=== PATIENT | female | born 1955 | race Hispanic/Latino ===

== ENCOUNTER 2016-08-01 14:31 | Emergency (ER) | payer BC ==
[2016-08-01 14:42] VITALS: BP 123/74; PULSE 79; RESP 16; TEMP 98.2; O2SAT 100
--- NOTE | 2016-08-01 15:36 | ED PDOC ---
Lower Extremity Pain/Injury Time Seen by Provider: 08/01/16 15:01 Chief Complaint (Nursing): Lower Extremity Problem/Injury History Per: Patient History/Exam Limitations: no limitations Onset/Duration Of Symptoms: Days Additional Complaint(s): 61-year-old female, PMHx includes Breast CA (completed chemotherapy), presents to the emergency department with complaints of swelling to RLE. Patient states 10 days ago, she notice swelling to her right leg. States symptoms resolved after 24hrs. Patient notes that she noticed the leg swelling again a few days ago, which is associated with "pins and needles" sensation and pain to calf. Patient was seen by clinic, who sent her to the ED for further evaluation and US to rule out DVT. Patient denies shortness of breath, chest pain, back pain, dizziness, nausea/vomiting, or any other associated symptoms. No other complaints at this time. Past Medical History Reviewed: Historical Data, Nursing Documentation, Vital Signs Vital Signs: Last Vital Signs Temp 98.2 F 08/01/16 14:38 Pulse 79 08/01/16 14:38 Resp 16 08/01/16 14:38 BP 123/74 08/01/16 14:38 Pulse Ox 100 08/01/16 14:38 - Family History Family History: States: Unknown Family Hx - Allergies Allergies/Adverse Reactions: Allergies Allergy/AdvReac Type Severity Reaction Status Date / Time Sulfa (Sulfonamide Allergy RASH Verified 08/01/16 14:38 Antibiotics) Review of Systems ROS Statement: Except As Marked, All Systems Reviewed And Found Negative Constitutional: Negative for: Fever, Chills Cardiovascular: Negative for: Chest Pain, Palpitations Respiratory: Negative for: Shortness of Breath Gastrointestinal: Negative for: Nausea, Vomiting Musculoskeletal: Positive for: Leg Pain ((+) swelling, RIGHT LOWER EXT) Skin: Negative for: Rash Neurological: Negative for: Weakness, Numbness Physical Exam - Reviewed Nursing Documentation Reviewed: Yes Vital Signs Reviewed: Yes - Physical Exam Appears: Positive for: Non-toxic, No Acute Distress Head Exam: Positive for: ATRAUMATIC, NORMOCEPHALIC Skin: Positive for: Warm, Dry. Negative for: Rash Neck: Positive for: Painless ROM Respiratory: Negative for: Accessory Muscle Use, Respiratory Distress Extremity: Positive for: Normal ROM, Tenderness, Calf Tenderness (RIGHT), Capillary Refill (>2 SECONDS), Swelling, Other (Pulses intact). Negative for: Pedal Edema, Deformity Neurologic/Psych: Positive for: Alert, Oriented - ECG O2 Sat by Pulse Oximetry: 100 Medical Decision Making Medical Decision Making: Impression: 61y/o F comes in w/ c/o RLE pain and swelling Diff Dx (includes but not limited to) DVT Plan: * US: Duplex LE * Reassess and Disposition US: negative for DVT advised to f.u with PMD compression stocking calf exercises and dec salt intake. Scribe Attestation: Documented by Dylan Villaseñor, acting as a scribe for DESEAN Schmitt. Provider Attestation: All medical record entries made by the Scribe were at my direction and personally dictated by me. I have reviewed the chart and agree that the record accurately reflects my personal performance of the history, physical exam, medical decision making, and the department course for this patient. I have also personally directed, reviewed, and agree with the discharge instructions and disposition. Disposition - Clinical Impression Clinical Impression: Leg swelling - Patient ED Disposition Is Patient to be Admitted: No Counseled Patient/Family Regarding: Need For Followup - Disposition Disposition: Routine/Home Disposition Time: 17:19 Condition: STABLE Instructions: Leg Edema (ED)
--- NOTE | 2016-08-01 18:19 | US ---
Right lower extremity venous Doppler exam 08/01/2016. History: Calf pain. Duplex interrogation of the deep veins of the right lower extremity performed in standard fashion. No prior study available for comparison. Findings: The the visualized deep veins of the right lower extremity exhibit normal flow, compressibility augmentation without evidence of DVT. Impression: No evidence of DVT seen within the visualized deep veins of the right lower extremity.
== END 2016-08-01 17:15 | disposition home or self-care (01) ==
LOC: H.ER 14:31
DX: R60.0 Localized edema (principal); Z85.3 Personal history of malignant neoplasm of breast